=== PATIENT | male | born 2000 | race African-American/Black ===

== ENCOUNTER 2019-01-22 20:54 | Emergency (ER) | payer OTHER ==
[~2019-01-22] VITALS: Ht 172.7 cm; Wt 147.0 kg
[2019-01-22 22:58] VITALS: BP 130/75
== END 2019-01-22 22:59 | disposition home or self-care (01) ==
LOC: ED 20:54
DX: S50.812A Abrasion of left forearm, initial encounter (principal); S50.811A Abrasion of right forearm, initial encounter; M54.5 Low back pain; V49.3XXA Car occupant (driver) (passenger) injured in unspecified nontraffic accident, initial encounter; Y93.I9 Activity, other involving external motion; Y92.413 State road as the place of occurrence of the external cause; Y99.8 Other external cause status